=== PATIENT | female | born 1955 | race Caucasian/White ===

== ENCOUNTER 2017-01-09 11:25 | Outpatient (CLI) ==
[2013-04-23 13:39] VITALS: TEMP 97.7
[2016-09-26 11:28] VITALS: BMI 34.0
--- NOTE | 2017-01-09 12:56 | DI ---
EXAM: Lumbar spine five views HISTORY: Facet arthropathy, back pain FINDINGS: Compared to 02/24/2009. Bone density appears decreased. Mild scoliosis is noted. There is mild to moderate bilateral sacroiliac joint arthropathy. There is anterior spondylolisthesis of L4 on L5 by an estimated 1.1 cm. There is severe facet arthropathy of the spine especially at the lumbosacral junction. No definite or well-defined pars interarticularis defect is seen although the oblique views are limited at this level and this is not excluded given the degree of listhesis. Ve rtebral body height is maintained. Moderate degenerative endplate disease thoracolumbar junction. Exaggerated lordosis. IMPRESSION: Severe arthropathy. Listhesis at L4/L5.
--- NOTE | 2017-01-09 13:01 | DI ---
Examination: Seven radiographic images of the cervical spine. Comparison: 12/06/2008 Reason for study: Facet joint arthropathy. FINDINGS: No acute fracture or listhesis. There is straightening of the cervical lordosis. Moderate to marke d degenerative changes are noted throughout the cervical spine with osteophyte formation and loss of intervertebral body disc space height. The dens is intact. No abnormal prevertebral soft tissue sw elling. Impression: 1. No acute fracture or listhesis. 2. Marked degenerative disease of the cervical spine.
== END 2017-01-09 11:26 | disposition home or self-care (01) ==
LOC: LAB 11:25
PROVIDERS: ATTEND Pain Medicine Interventional Pain Medicine
DX: M47.812 Spondylosis without myelopathy or radiculopathy, cervical region (principal); M47.816 Spondylosis without myelopathy or radiculopathy, lumbar region; M47.817 Spondylosis without myelopathy or radiculopathy, lumbosacral region; M48.02 Spinal stenosis, cervical region; M48.06 Spinal stenosis, lumbar region; M48.07 Spinal stenosis, lumbosacral region; M51.36 Other intervertebral disc degeneration, lumbar region; M51.37 Other intervertebral disc degeneration, lumbosacral region; E04.2 Nontoxic multinodular goiter; E78.5 Hyperlipidemia, unspecified; F32.9 Major depressive disorder, single episode, unspecified
CPT/HCPCS: 36415; 80074

== ENCOUNTER 2017-04-06 12:01 | Outpatient (CLI) ==
[2013-04-23 13:39] VITALS: TEMP 97.7
[2016-09-26 11:28] VITALS: BMI 34.0
== END 2017-04-06 12:02 | disposition home or self-care (01) ==
LOC: LAB 12:01
PROVIDERS: ATTEND Physician Assistant
DX: E05.90 Thyrotoxicosis, unspecified without thyrotoxic crisis or storm (principal)
CPT/HCPCS: 36415; 84443

== ENCOUNTER 2017-05-08 12:38 | Outpatient (CLI) ==
[2013-04-23 13:39] VITALS: TEMP 97.7
[2016-09-26 11:28] VITALS: BMI 34.0
[2017-05-08 12:59] LABS: BASOPHILS # (AUTO) 0.1 K/uL (0-0.2); EOSINOPHILS # (AUTO) 0.1 K/ul (0.0-0.7); EOSINOPHILS % (AUTO) 1.9 % (0.0-7.0); HEMATOCRIT 46.2 % (37.0-47.0); HEMOGLOBIN 15.5 g/dl (12.0-16.0); IMMATURE GRANULOCYTE % (AUTO) 0.3 % (0.0-5.0); LYMPHOCYTES # (AUTO) 2.3 K/uL (0.60-3.4); LYMPHOCYTES % (AUTO) 34.8 (10.0-50.0); MEAN CORPUSCULAR HEMOGLOBIN 29.2 pg (27.0-31.0); MEAN CORPUSCULAR HGB CONC 33.5 (31.8-35.4); MEAN CORPUSCULAR VOLUME 87.2 fl (81.0-99.0); MONOCYTES # (AUTO) 0.3 K/uL (0.4-2.0); MONOCYTES % (AUTO) 3.9 (0-10); NEUTROPHILS # (AUTO) 3.9 K/ul (2.0-6.9); NEUTROPHILS % (AUTO) 58.1; PLATELET COUNT 321 10^3/uL (140-440)
[2017-05-08 13:13] LABS: ALBUMIN 4.3 g/dL (3.4-5.0); ALBUMIN/GLOBULIN RATIO 1.26; ANION GAP 12.2; BILIRUBIN,TOTAL 0.37 mg/dL (0.00-1.20); BUN/CREATININE RATIO 15.55; CALCIUM 9.9 mg/dL (8.2-10.2); CHOL/HDL RATIO 3.8 (4.5-5.5); CREATININE 0.9 mg/dL (0.60-1.30); POTASSIUM 4.2 mmol/L (3.5-5.10); TOTAL PROTEIN 7.7 g/dL (6.4-8.2)
== END 2017-05-08 12:39 | disposition home or self-care (01) ==
LOC: LAB 12:38
PROVIDERS: ATTEND Nurse Practitioner Family
DX: E78.5 Hyperlipidemia, unspecified (principal); G89.29 Other chronic pain; F32.9 Major depressive disorder, single episode, unspecified; M19.90 Unspecified osteoarthritis, unspecified site
CPT/HCPCS: 36415; 80053; 80061; 85025

== ENCOUNTER 2017-06-16 11:08 | Outpatient (CLI) ==
[2013-04-23 13:39] VITALS: TEMP 97.7
[2016-09-26 11:28] VITALS: BMI 34.0
== END 2017-06-16 11:09 | disposition home or self-care (01) ==
LOC: LAB 11:08
PROVIDERS: ATTEND Physician Assistant
DX: E03.9 Hypothyroidism, unspecified (principal)
CPT/HCPCS: 36415; 84443

== ENCOUNTER 2017-07-17 11:02 | Outpatient (CLI) ==
[2013-04-23 13:39] VITALS: TEMP 97.7
[2016-09-26 11:28] VITALS: BMI 34.0
== END 2017-07-17 11:03 | disposition home or self-care (01) ==
LOC: LAB 11:02
PROVIDERS: ATTEND Otolaryngology
DX: E03.8 Other specified hypothyroidism (principal)
CPT/HCPCS: 36415; 84443

== ENCOUNTER 2017-08-16 10:59 | Outpatient (CLI) ==
[2013-04-23 13:39] VITALS: TEMP 97.7
[2016-09-26 11:28] VITALS: BMI 34.0
== END 2017-08-16 11:00 | disposition home or self-care (01) ==
LOC: LAB 10:59
PROVIDERS: ATTEND Physician Assistant
DX: E89.0 Postprocedural hypothyroidism (principal)
CPT/HCPCS: 36415; 84443

== ENCOUNTER 2017-09-18 11:09 | Outpatient (CLI) ==
[2013-04-23 13:39] VITALS: TEMP 97.7
[2016-09-26 11:28] VITALS: BMI 34.0
[2017-09-18 11:26] LABS: BASOPHILS # (AUTO) 0.1 K/uL (0-0.2); BASOPHILS % (AUTO) 1.3 % (0.0-3.0); EOSINOPHILS # (AUTO) 0.2 K/ul (0.0-0.7); EOSINOPHILS % (AUTO) 2.4 % (0.0-7.0); HEMATOCRIT 45.4 % (37.0-47.0); HEMOGLOBIN 15.3 g/dl (12.0-16.0); IMMATURE GRANULOCYTE % (AUTO) 0.2 % (0.0-5.0); LYMPHOCYTES # (AUTO) 2.5 K/uL (0.60-3.4); LYMPHOCYTES % (AUTO) 39.4 (10.0-50.0); MEAN CORPUSCULAR HEMOGLOBIN 30.1 pg (27.0-31.0); MEAN CORPUSCULAR HGB CONC 33.7 (31.8-35.4); MEAN CORPUSCULAR VOLUME 89.4 fl (81.0-99.0); MONOCYTES # (AUTO) 0.5 K/uL (0.4-2.0); MONOCYTES % (AUTO) 7.6 (0-10); NEUTROPHILS # (AUTO) 3.1 K/ul (2.0-6.9); NEUTROPHILS % (AUTO) 49.1; PLATELET COUNT 247 10^3/uL (140-440); RED BLOOD COUNT 5.08 10^6/ul (4.20-5.40); WHITE BLOOD COUNT 6.22 K/ul (4.6-10.2)
[2017-09-18 11:34] LABS: BILIRUBIN,URINE Negative (NEGATIVE); KETONES,URINE Negative (NEGATIVE); LEUKOCYTE ESTERASE ,URINE Negative (NEGATIVE); NITRITE,URINE Negative (NEGATIVE); PH,URINE 6.5 (5-9); PROTEIN,URINE Negative (NEGATIVE); URINE, BLOOD Negative (NEGATIVE)
[2017-09-18 12:02] LABS: ADD URINE MICROSCOPIC NO
[2017-09-18 12:09] LABS: ALBUMIN/GLOBULIN RATIO 1.18; ANION GAP 15.7; BILIRUBIN,TOTAL 0.56 mg/dL (0.00-1.20); BUN/CREATININE RATIO 14.73; CALCIUM 10.1 mg/dL (8.2-10.2); CHOL/HDL RATIO 4.5 (4.5-5.5); CREATININE 0.95 mg/dL (0.60-1.30); POTASSIUM 4.7 mmol/L (3.5-5.10); TOTAL PROTEIN 7.4 g/dL (5.8-8.1)
== END 2017-09-18 11:10 | disposition home or self-care (01) ==
LOC: LAB 11:09
PROVIDERS: ATTEND Nurse Practitioner Family
DX: E78.5 Hyperlipidemia, unspecified (principal); G89.29 Other chronic pain; M19.90 Unspecified osteoarthritis, unspecified site; F32.9 Major depressive disorder, single episode, unspecified; E03.9 Hypothyroidism, unspecified
CPT/HCPCS: 36415; 80053; 80061; 81001; 84439; 84443; 85025

== ENCOUNTER 2017-10-18 11:20 | Outpatient (CLI) ==
[2013-04-23 13:39] VITALS: TEMP 97.7
[2016-09-26 11:28] VITALS: BMI 34.0
== END 2017-10-18 11:21 | disposition home or self-care (01) ==
LOC: LAB 11:20
PROVIDERS: ATTEND Physician Assistant
DX: E03.9 Hypothyroidism, unspecified (principal)
CPT/HCPCS: 36415; 84443

== ENCOUNTER 2017-12-15 12:13 | Outpatient (CLI) ==
[2013-04-23 13:39] VITALS: TEMP 97.7
[2016-09-26 11:28] VITALS: BMI 34.0
== END 2017-12-15 12:14 | disposition home or self-care (01) ==
LOC: LAB 12:13
PROVIDERS: ATTEND Nurse Practitioner Family
DX: E78.5 Hyperlipidemia, unspecified (principal); F32.9 Major depressive disorder, single episode, unspecified; I10 Essential (primary) hypertension; M19.90 Unspecified osteoarthritis, unspecified site
CPT/HCPCS: 36415; 80053; 80061; 85025

== ENCOUNTER 2018-05-25 09:25 | Emergency (ER) | payer OTHER ==
[2018-05-25 09:36] VITALS: BP 133/85; TEMP 97.6; BMI 35.9
--- NOTE | 2018-05-25 10:04 | ED.PDOC ---
General ED Provider: Dr. FARZANEH WARNER Chief Complaint: Extremity Pain/Injury Stated Complaint: RIGHT KNEE PAIN/ RIGHT LEG PAIN Time Seen by Physician: 09:30 (AMBULATORY IN THE ED ) Mode of Arrival: Walk-In Information Source: Patient Exam Limitations: No limitations Primary Care Provider: JEAN PAUL ROSS Nursing and Triage Documentation Reviewed and Agree: Yes (SEEN WITH JACE AT ALL TIMES ) Does patient meet sepsis criteria?: Yes If yes, has appropriate treatment been initiated?: No System Inflammatory Response Syndrome: Not Applicable Sepsis Protocol: For patient's 13 years and over: Temp is 96.8 and below OR 101 and greater Pulse >90 BPM Resp >20/minute Acutely Altered Mental Status Are patient's symptoms suggestive of a new infection, such as: -Pneumonia -Skin, Soft Tissue -Endocarditis -UTI -Bone, Joint Infection -Implantable Device -Acute Abdominal Infection -Wound Infection -Meningitis -Blood Stream Catheter Infection -Unknown Musculoskeletal Complaint Exam - Knee Pain Complaint/Exam Mechanism of Injury: Reports: No known trauma Onset/Duration: 1 DAY Symptoms Are: Still present Initial Severity: Moderate Current Severity: Mild Location: Reports: Discrete Character: Reports: Aching Alleviating: Reports: Rest, Position Aggravating: Reports: Movement, Prolonged standing Associated Signs and Symptoms: Denies: Swelling, Redness, Bruising, Fever, Weakness, Numbness, Tingling Able to Bear Weight: Yes Septic Arthritis Risk Factors: Reports: None Knee Findings: Present: Warmth. Absent: Swelling, Ecchymosis, Abnormal contour , Rotation, Ligamentous instability, Laceration, Erythema, Other joint pain, Foreign body Tenderness: Present: Pre-patellar Zaina Test Positive: No Ebonie Test Positive: No Differential Diagnoses: DVT, Internal Derangement, Gout Review of Systems - Review Of Systems Constitutional: Reports: No symptoms Eyes: Reports: No symptoms Ears, Nose, Mouth, Throat: Reports: No symptoms Respiratory: Reports: No symptoms Cardiac: Reports: No symptoms GI: Reports: No symptoms : Reports: No symptoms Musculoskeletal: Reports: Joint pain (knee ) Skin: Reports: No symptoms Neurological: Reports: No symptoms Endocrine: Reports: No symptoms Hematologic/Lymphatic: Reports: No symptoms All Other Systems: Reviewed and Negative Past Medical History - Past Medical History Endocrine: Reports: Hypothyroid Cardiovascular: Reports: Unknown Respiratory: Reports: COPD Hematological: Reports: Unknown Gastrointestinal: Reports: Unknown Genitourinary: Reports: Unknown Neuro/Psych: Reports: Unknown Musculoskeletal: Reports: Arthritis, Back Pain (neck and back problems./ hypoglycemia thy copd arth) Cancer: Reports: Unknown Last Menstrual Period: unknown Other Pertinent Past Medical History: hypoglycemia thy copd arth - Surgical History General Surgical History: Reports: ( x2 ), Orthopedic (5th finger surgery left foot) - Family History Family History: Reports: Unknown - Social History Smoking Status: Former smoker Hx Substance Use: No Alcohol Screening: None Physical Exam - Physical Exam Appearance: Well-appearing, No pain distress, Well-nourished Eyes: MARGARITO, EOMI, Conjunctiva clear ENT: Ears normal, Nose normal, Oropharynx normal Respiratory: Airway patent, Breath sounds clear, Breath sounds equal, Respirations nonlabored Cardiovascular: RRR, Pulses normal, No rub, No murmur GI/: Soft, Nontender, No masses, Bowel sounds normal, No Organomegaly Musculoskeletal: Normal strength, ROM intact, No edema, No calf tenderness Skin: Warm, Dry, Normal color Neurological: Sensation intact, Motor intact, Reflexes intact, Cranial nerves intact, Alert, Oriented Psychiatric: Affect appropriate, Mood appropriate Critical Care Note - Critical Care Note Total Time (mins): 0 Course - Course Orders, Labs, Meds: Orders Category Date Time Status MANPREET [ED MANPREET WRAP] .ONCE EMERGENCY 05/25/18 10:04 Active URIC ACID Stat LAB 05/25/18 10:03 Ordered KNEE, RIGHT 4 VIEWS Stat RADS 05/25/18 09:53 Completed U/S VENOUS SCAN RT. LEG Stat RADS 05/25/18 09:54 Completed Vital Signs: Temp Pulse Resp BP Pulse Ox 05/25/18 09:27 97.6 F 92 H 20 133/85 98 Departure - Departure Time of Disposition: 11:02 Disposition: HOME SELF-CARE Discharge Problem: Knee pain, right Qualifiers: Chronicity: acute Qualified Code(s): M25.561 - Pain in right knee Dawkins's cyst of knee Qualifiers: Laterality: right Qualified Code(s): M71.21 - Synovial cyst of popliteal space [Dawkins], right knee Instructions: Knee Pain (ED), Arthralgia (ED), Bakers Cyst (ED) Condition: Good Pt referred to PMD for follow-up: Yes IPMP verified?: No Additional Instructions: Please call your Family Physician as soon as possible to schedule a follow-up appointment. Allergies/Adverse Reactions: Allergies aspirin Adverse Reaction (Verified 05/25/18 09:35) NSAIDS (Non-Steroidal Anti-Inflamma Adverse Reaction (Verified 05/25/18 09:35) Home Medications: Ambulatory Orders Cyclobenzaprine HCl [Flexeril] 10 mg PO RTQ8H PRN 04/22/13 Diazepam [Valium] 10 mg PO Q6-8H PRN 04/22/13 Hydrocodone/Acetaminophen [Mellen 10-325 Tablet] 1 each PO QID 07/21/16 Bupropion HCl [Wellbutrin Xl] 150 mg PO DAILY #30 04/06/17 Gabapentin 300 mg PO TID 09/14/17 Levothyroxine Sodium 150 mcg PO DAILY 12/15/17 Methylphenidate HCl [Ritalin] 10 mg PO BID 12/15/17
--- NOTE | 2018-05-25 10:54 | DI ---
EXAM: Radiographs, right knee HISTORY: Right knee pain. COMPARISON: None available. TECHNIQUE: Four views. FINDINGS: Bone mineralization is normal. There is no fracture or dislocation. The joint spaces are maintained although mild tricompartmental marginal osteophyte formation noted. No focal soft tissue abnormality is seen. IMPRESSION: 1. No fracture or dislocation. 2. Mild osteoarthritis.
--- NOTE | 2018-05-25 11:00 | US ---
EXAM: Right lower extremity venous Doppler History: Right lower extremity pain. Technique: Multiple sonographic images through the right lower extremity were obtained. Color duple x Doppler was used to interrogate vascular flow. Findings: The right common femoral, greater saphenous, profunda, superficial femoral, popliteal, piter jacob, posterior tibial and anterior tibial veins demonstrate spontaneous flow with normal compression and normal augmentation. 6.1 cm x 1.5 cm x 3.6 cm area of fluid within the right popliteal fossa. Impression: 1. No sonographic evidence for deep venous thrombosis. 2. Right Dawkins's cyst
== END 2018-05-25 11:12 | disposition home or self-care (01) ==
LOC: ED 09:25
DX: M25.561 Pain in right knee (principal); M71.21 Synovial cyst of popliteal space [Baker], right knee
CPT/HCPCS: 36415; 84550; 99283

== ENCOUNTER 2018-08-23 09:16 | Outpatient (CLI) ==
[2013-04-23 13:39] VITALS: TEMP 97.7
--- NOTE | 2018-08-23 13:31 | US ---
EXAM: Ultrasound thyroid. HISTORY: Multinodular goiter. COMPARISON: 07/27/2016, 06/20/2014. TECHNIQUE: Dasilva-scale and color Doppler images. FINDINGS: The right lobe of the thyroid measures 2.8 x 1.3 x 1.3 cm. Peripherally calcified nodule measures savi roximately 1 cm diameter. Possible additional solid hypoechoic nodule measuring 1.2 x 0.9 x 3.7 cm. The thyroid isthmus is difficult to visualize. The left lobe of the thyroid measures 2.1 x 0.8 x 0.7 cm. Small cystic nodule is suggested measuring no greater than 0.4 cm. Since the prior study, the thyroid has decreased in size and multiple nodules seen on the previous st udy are not identified currently. IMPRESSION: Interval decrease in size of the thyroid with nonvisualization of several previous nodules. The larg est right-sided nodules are not significantly changed.
== END 2018-08-23 09:17 | disposition home or self-care (01) ==
LOC: RAD 09:16
PROVIDERS: ATTEND Physician Assistant
DX: E04.2 Nontoxic multinodular goiter (principal); E89.0 Postprocedural hypothyroidism
CPT/HCPCS: 36415; 84443

== ENCOUNTER 2020-05-04 08:21 | Inpatient (IN) ==
[2020-05-04 12:53] VITALS: BMI 36.9
[2020-05-05 09:33] VITALS: BP 109/68; TEMP 97.8
== END 2020-05-05 14:30 | disposition home or self-care (01) | DRG 310 ==
LOC: ED 08:21 → MEDSURG B 12:08
PROVIDERS: ADMIT Family Medicine; ATTEND Family Medicine
DX: E66.9 Obesity, unspecified; R51 Headache; Z79.899 Other long term (current) drug therapy; G89.29 Other chronic pain; J44.9 Chronic obstructive pulmonary disease, unspecified; Z68.36 Body mass index [BMI] 36.0-36.9, adult; M54.9 Dorsalgia, unspecified; M25.50 Pain in unspecified joint; R06.02 Shortness of breath; F17.210 Nicotine dependence, cigarettes, uncomplicated; E03.9 Hypothyroidism, unspecified; F41.8 Other specified anxiety disorders; Z79.891 Long term (current) use of opiate analgesic; I95.9 Hypotension, unspecified; Z51.81 Encounter for therapeutic drug level monitoring; R53.83 Other fatigue; I10 Essential (primary) hypertension; E78.5 Hyperlipidemia, unspecified; I47.1 Supraventricular tachycardia